=== PATIENT | male | born 1995 | race Two or more races ===

== ENCOUNTER 2018-12-30 16:06 | Emergency (ER) | payer SELFPAY ==
[~2018-12-30] VITALS: Ht 170.2 cm; Wt 77.1 kg
[2018-12-30] MEDS ORDERED: TETANUS-DIPTH-ACEL PERTUSSIS 0.5ML SYRG IM ONE ×2 (16:35→16:45)
[2018-12-30] MEDS ORDERED: LIDOCAINE 2% (LOCAL ANESTH.) PF 5ml SDV ONE (17:44)
[2018-12-30] MEDS ORDERED: cefTRIAXone SOD 1,000 MG VL IM ONE (18:00)
[2018-12-30] MEDS ORDERED: LIDOCAINE 2%HCL (LOCAL ANESTH.) INJ 10ml MDV IJ ONE (18:00)
[2018-12-30 18:18] VITALS: BP 122/67
== END 2018-12-30 18:20 | disposition home or self-care (01) ==
LOC: EDBD 16:06 → ER 16:11
DX: S41.012A Laceration without foreign body of left shoulder, initial encounter (principal); S01.412A Laceration without foreign body of left cheek and temporomandibular area, initial encounter; S51.011A Laceration without foreign body of right elbow, initial encounter; F17.210 Nicotine dependence, cigarettes, uncomplicated; F12.10 Cannabis abuse, uncomplicated; F15.10 Other stimulant abuse, uncomplicated; Y08.89XA Assault by other specified means, initial encounter; Y93.89 Activity, other specified; Y99.8 Other external cause status; Y92.89 Other specified places as the place of occurrence of the external cause
CPT/HCPCS: 70486; 71045; 73030; 73070; 90471; 90715; 96372; 99284; J0696; J2001

== ENCOUNTER 2021-10-20 20:22 | Emergency (ER) | payer MEDICAID, OTHER ==
[~2021-10-20] VITALS: Ht 162.6 cm; Wt 74.8 kg
[2021-10-20 20:24] VITALS: BP 119/83
== END 2021-10-20 23:48 | disposition left against medical advice (07) ==
LOC: ER 20:35
DX: N50.811 Right testicular pain (principal); Z53.21 Procedure and treatment not carried out due to patient leaving prior to being seen by health care provider

== ENCOUNTER 2021-11-11 09:48 | Emergency (ER) | payer MEDICAID ==
[~2021-11-11] VITALS: Ht 160 cm; Wt 72.6 kg
[2021-11-11 09:52] VITALS: BP 138/88
== END 2021-11-11 10:02 ==
LOC: ER 09:48
DX: S51.812A Laceration without foreign body of left forearm, initial encounter (principal); F17.210 Nicotine dependence, cigarettes, uncomplicated; F12.10 Cannabis abuse, uncomplicated; F15.10 Other stimulant abuse, uncomplicated; X58.XXXA Exposure to other specified factors, initial encounter; Y93.89 Activity, other specified; Y92.89 Other specified places as the place of occurrence of the external cause; Y99.8 Other external cause status
CPT/HCPCS: 12001

== ENCOUNTER 2022-08-15 15:45 | Emergency (ER) | payer MEDICAID ==
[~2022-08-15] VITALS: Ht 160 cm; Wt 70.0 kg
[2022-08-15 16:41] LABS: Hematocrit 41.5 % (41.0-53.0); Mean Corpuscular Hemoglobin 30.7 pg (28.0-32.0); Mean Corpuscular Hgb Conc. 33.7 g/dL (32.0-36.0); Mean Corpuscular Volume 91.1 fL (80.0-100.0); Red Blood Cells 4.55 10^6/uL (4.5-5.90); Red Cell Distribution Width 13.5 % (11.8-14.3); White Blood Cell 11.3 10^3/uL (4.4-10.8)
[2022-08-15 16:59] LABS: Albumin 2.1 g/dL (3.4-5.0); Potassium 3.8 mmol/L (3.5-5.1)
[2022-08-15 17:01] LABS: Basophils % (manual) 0 (0.0-2.0); Blast Cells 0; Eosinophils % (manual) 0 (0-7); Metamyelocytes % 0; Myelocytes % 0; Promyelocytes % 0; Reactive Lymphocytes 0
[2022-08-15 17:02] LABS: BUN/Creatinine Ratio 10.3; Bilirubin, Total 0.5 mg/dL (0.2-1.0); Total Protein 7.9 g/dL (6.4-8.2)
[2022-08-15 17:14] LABS: Band Neutrophils % (manual) 17; Lymphocytes % (manual) 4 (10.0-50.0); Monocytes % (manual) 5 (0-12)
[2022-08-15] MEDS ORDERED: ACET-1158 PO (17:45)
[2022-08-15] MEDS ORDERED: SODIUM CHLORIDE 0.9% 1,000 ML IV ONE (17:45)
[2022-08-15] MEDS ORDERED: ONDA-144 PO (17:45)
[2022-08-15] MEDS ORDERED: AMOX-277 PO (17:45)
[2022-08-15 17:55] LABS: Alcohol, Urine < 3.0 mg/dL (0-10); Amphetamine Screen, Urine POSITIVE (NEGATIVE); Barbiturate Scree,Urine NEGATIVE (NEGATIVE); Benzodiazephine Screen, Urine NEGATIVE (NEGATIVE); Cannabinoid Screen, Urine POSITIVE (NEGATIVE); Cocaine Screen, Urine NEGATIVE (NEGATIVE); Opiate Scree,Urine NEGATIVE (NEGATIVE); Phencyclidine Screen, Urine NEGATIVE (NEGATIVE)
[2022-08-15 17:58] LABS: Urine Bacteria NONE SEEN /hpf (None Seen); Urine Blood TRACE /uL (Negative); Urine Specific Gravity 1.024 (1.001-1.035); Urine WBC 12 /hpf (0 - 3)
[2022-08-15] MEDS ORDERED: DOXY-332 PO (18:18)
[2022-08-15] MEDS ORDERED: cefTRIAXone 1GM/50ML D5W 50 ML IV ONE (18:30)
[2022-08-15] MEDS ORDERED: ACETAMINOPHEN 325 MG TAB PO ONE (18:30)
[2022-08-15 20:29] VITALS: BP 110/74
== END 2022-08-15 20:29 | disposition home or self-care (01) ==
LOC: ER 15:45 → EDUNIT# 15:45 → EDBD 15:45 → ER 20:29
DX: J06.9 Acute upper respiratory infection, unspecified (principal); N39.0 Urinary tract infection, site not specified; R11.0 Nausea; R19.7 Diarrhea, unspecified; F15.10 Other stimulant abuse, uncomplicated; F12.10 Cannabis abuse, uncomplicated; F17.210 Nicotine dependence, cigarettes, uncomplicated; Z59.00 Homelessness unspecified; Z20.822 Contact with and (suspected) exposure to COVID-19
CPT/HCPCS: 36415; 71045; 80053; 80307; 81001; 83690; 85007; 85027; 87426; 96365; 96366; 99284; J0696; J7030